=== PATIENT | male | born 1995 | race Two or more races ===

== ENCOUNTER 2018-12-25 23:05 | Inpatient (IN) | payer OTHER ==
[~2018-12-25] VITALS: Ht 188 cm; Wt 81.6 kg
[~2018-12-25 23:05] MED LIST: AMOX1TAB12 PO
--- NOTE | 2018-12-25 23:29 | NUR ---
SE PACIENTE ALERTA Y ORIENTADO X3 ACOMPANDO POR FAMILIAR QUIEN REFIERE DOLOR ABDOMINAL DESDE HACE 1 SEMANA.
--- NOTE | 2018-12-26 01:02 | NUR ---
EVALUA PTE. SE ORIENTA A PTE SOBRE TX MEDICO. PTE REFIERE COMPRENDER. SE REALIZAN MUESTRAS DE LABORATORIO BAJO MEDIDAS ASEPTICAS. SE ADMINISTRAN MEDICAMENTOS BRITTANY ORDEN MEDICA. SE NOTIFICA CT. PROCEDIMIENTOS LLEVADOS A CABO POR .
--- NOTE | 2018-12-26 01:12 | NUR ---
PTE REHUSA MEDICACION PARA EL DOLOR.
--- NOTE | 2018-12-26 07:32 | NUR ---
SE RECIBE PTE ALERTA Y ORIENTADO X3, PTE SE ENCUENTRA EN ALESSIA CO BARANDAS ELEVADAS Y INTERCOM ACCESIBLE. PTE CON IVF'S PATENTE,JOYCE DE EDEMA O ERITEMA BAJANDO UN .9 A 100ML/HR. PTE PENDIENTE A RE-EVALUAR.
== END 2018-12-28 10:55 | disposition home or self-care (01) | DRG 392 ==
LOC: ER 23:05 → MEDI 12-26 08:03
PROVIDERS: ADMIT Internal Medicine Cardiovascular Disease
PROC: BW21ZZZ Computerized Tomography (CT Scan) of Abdomen and Pelvis (ICD-10-PCS; principal; 2018-12-26)
DX: K52.89 Other specified noninfective gastroenteritis and colitis (principal); E86.0 Dehydration

== ENCOUNTER 2019-03-17 14:22 | Outpatient (CLI) | payer OTHER | END 2019-03-17 14:46 | disposition home or self-care (01) | LOC: SONOGRAMA 14:22 | DX: R10.9 Unspecified abdominal pain (principal) ==

== ENCOUNTER 2019-06-05 10:36 | Outpatient (CLI) | payer OTHER | END 2019-06-05 10:47 | disposition home or self-care (01) | LOC: RAD 10:36 | DX: R10.9 Unspecified abdominal pain (principal); K85.92 Acute pancreatitis with infected necrosis, unspecified ==

== ENCOUNTER 2019-06-05 11:14 | Outpatient (CLI) | payer OTHER | END 2019-06-05 11:25 | disposition home or self-care (01) | LOC: LAB 11:14 | DX: E78.2 Mixed hyperlipidemia (principal); E11.9 Type 2 diabetes mellitus without complications; I10 Essential (primary) hypertension; E03.8 Other specified hypothyroidism; M46.40 Discitis, unspecified, site unspecified; M19.90 Unspecified osteoarthritis, unspecified site ==

== ENCOUNTER 2019-11-15 22:17 | Emergency (ER) | payer OTHER ==
[~2019-11-15] VITALS: Ht 188 cm; Wt 88.5 kg
[2019-11-16] MEDS ORDERED: ORASEP SPRAY30 ML MM (02:26)
[2019-11-16] MEDS ORDERED: ZYNCOF 20-400120 ML PO (02:26)
== END 2019-11-16 02:26 ==
LOC: ER 22:17
DX: B34.9 Viral infection, unspecified (principal)

== ENCOUNTER 2020-01-06 13:16 | Outpatient (CLI) | payer OTHER ==
[~2020-01-06 13:16] MED LIST changes: +ORASEP SPRAY30 ML MM; +ZYNCOF 20-400120 ML PO
== END 2020-01-06 13:33 | disposition home or self-care (01) ==
LOC: TOM 13:16
DX: R10.84 Generalized abdominal pain (principal)

== ENCOUNTER 2020-07-07 08:18 | Outpatient (CLI) | payer OTHER | END 2020-07-07 08:26 | disposition home or self-care (01) | LOC: SONOGRAMA 08:18 | PROVIDERS: ATTEND Internal Medicine Cardiovascular Disease | DX: R10.84 Generalized abdominal pain (principal) ==

== ENCOUNTER → 2020-07-12 17:04 | Outpatient (CLI) | payer OTHER | END | disposition home or self-care (01) | LOC: LAB 17:04 | PROVIDERS: ATTEND Internal Medicine Cardiovascular Disease | DX: R10.84 Generalized abdominal pain (principal); N39.0 Urinary tract infection, site not specified ==

== ENCOUNTER 2020-08-12 16:27 | Outpatient (CLI) | payer OTHER | END 2020-08-12 16:41 | disposition home or self-care (01) | LOC: TOM 16:27 | PROVIDERS: ATTEND Internal Medicine Cardiovascular Disease | DX: R51.9 Headache, unspecified (principal) ==

== ENCOUNTER 2022-02-05 13:19 | Outpatient (CLI) | payer OTHER | END 2022-02-05 13:22 | disposition home or self-care (01) | LOC: TOM 13:19 | PROVIDERS: ATTEND Internal Medicine Cardiovascular Disease | DX: R51.9 Headache, unspecified (principal) ==

== ENCOUNTER 2022-02-21 09:07 | Outpatient (CLI) | payer OTHER | END 2022-02-21 09:10 | disposition home or self-care (01) | LOC: NUCLEAR 09:07 | PROVIDERS: ATTEND Internal Medicine Cardiovascular Disease | DX: R07.9 Chest pain, unspecified (principal) ==

== ENCOUNTER 2022-03-13 09:10 | Outpatient (CLI) | payer OTHER | END 2022-03-13 09:20 | disposition home or self-care (01) | LOC: TOM 09:10 | PROVIDERS: ATTEND Internal Medicine Cardiovascular Disease | DX: J44.9 Chronic obstructive pulmonary disease, unspecified (principal) ==

== ENCOUNTER 2022-05-10 08:45 | Emergency (ER) | payer OTHER ==
[~2022-05-10] VITALS: Ht 185.4 cm; Wt 86.2 kg
== END 2022-05-10 11:52 | disposition home or self-care (01) ==
LOC: ER 08:45
DX: R53.81 Other malaise (principal); Z20.828 Contact with and (suspected) exposure to other viral communicable diseases

== ENCOUNTER 2022-07-06 08:18 | Outpatient (CLI) | payer OTHER | END 2022-07-06 08:31 | disposition home or self-care (01) | LOC: SONOGRAMA 08:18 | DX: K00.0 Anodontia (principal) ==

== ENCOUNTER 2025-05-11 14:41 | Emergency (ER) | payer OTHER ==
[~2025-05-11] VITALS: Ht 182.9 cm; Wt 86.2 kg
[2025-05-11] MEDS ORDERED: ONDANSETRON HCL 2 MG/ML VIAL IV STA (18:59)
[2025-05-11] MEDS ORDERED: KETOROLAC TROMETHAMINE 15 MG VIAL IM STA (19:00)
[2025-05-11 19:31] LABS: BASO % 0.3 % (0.1-1.2); EOS # 0.07 (0.04-0.54); EOS % 0.9 % (0.7-7.0); LYMPH # 1.74 (1.18-3.74); LYMPH % 23.4 % (19.3-53.1); MEAN PLATELET VOLUME 9.50 fl (9.4-12.4); MONO # 0.47 (0.24-0.82); MONO % 6.3 % (4.7-12.5); NEUT # 5.11 (1.56-6.13); NEUT % 68.8 % (34.0-71.1); RED CELL DISTRIBUTION WIDTH 12.4 % (11.6-14.4)
[2025-05-11 20:08] LABS: ALT/SGPT 27.0 U/L (12-78); AST/SGOT 27.0 U/L (15-37); BILIRUBIN TOTAL 1.64 mg/dL (0.3-1.2); BUN CREA RATIO 18.0 (7.0-25.0); CREATININE SERUM 1.28 mg/dL (0.70-1.30); GFR 66.92; GLOBULINA 3.2 G/DL (2.4-3.5); GLUCOSE FASTING 98.0 mg/dL (65-100); OSMOLALITY SERUM 285.0 MOSM/KG (275-295)
[2025-05-11 20:37] LABS: COVID-19 AG NEGATIVE (NEGATIVE)
[2025-05-11] MEDS ORDERED: ZOVIRAX400 MG PO (21:21)
== END 2025-05-11 22:16 | disposition home or self-care (01) ==
LOC: ER 14:41
PROVIDERS: General Practice
DX: B00.9 Herpesviral infection, unspecified (principal); Z20.822 Contact with and (suspected) exposure to COVID-19

== ENCOUNTER 2025-06-25 20:30 | Emergency (ER) | payer OTHER ==
[~2025-06-25] VITALS: Ht 172.7 cm; Wt 77.1 kg
[~2025-06-25 20:30] MED LIST changes: +ZOVIRAX400 MG PO
[2025-06-25 21:22] LABS: BASO % 0.3 % (0.1-1.2); EOS # 0.05 (0.04-0.54); EOS % 0.7 % (0.7-7.0); LYMPH # 2.21 (1.18-3.74); LYMPH % 31.6 % (19.3-53.1); MEAN PLATELET VOLUME 9.10 fl (9.4-12.4); MONO # 0.44 (0.24-0.82); MONO % 6.3 % (4.7-12.5); NEUT # 4.26 (1.56-6.13); NEUT % 61.0 % (34.0-71.1); RED CELL DISTRIBUTION WIDTH 11.5 % (11.6-14.4)
[2025-06-25 21:39] LABS: COVID-19 AG NEGATIVE (NEGATIVE)
== END 2025-06-25 22:55 | disposition home or self-care (01) ==
LOC: ER 20:30
PROVIDERS: Preventive Medicine Public Health & General Preventive Medicine
DX: R50.9 Fever, unspecified (principal); R05.9 Cough, unspecified; Z20.822 Contact with and (suspected) exposure to COVID-19